=== PATIENT | female | born 1975 ===

== ENCOUNTER 2023-01-14 15:51 | Outpatient (CLI) | payer OTHER | END 2023-01-14 16:00 | disposition home or self-care (01) | LOC: RAD 15:51 | PROVIDERS: ATTEND Internal Medicine | DX: R05.8 Other specified cough (principal) ==

== ENCOUNTER 2025-02-08 16:35 | Outpatient (CLI) | payer OTHER | END 2025-02-08 16:38 | disposition home or self-care (01) | LOC: RAD 16:35 | PROVIDERS: ATTEND Internal Medicine | DX: R06.02 Shortness of breath (principal) ==